=== PATIENT | female | born 1950 | race Caucasian/White ===

== ENCOUNTER 2017-05-04 07:38 | Emergency (ER) | payer OTHER, MEDICAID ==
[2017-05-04] MEDS: HYDROmorphONE 1 MG/ML SYG IV ×2 (07:57→10:35)
[2017-05-04] MEDS: ONDANSETRON 4 MG INJ IV ×2 (07:57→10:36)
[2017-05-04] MEDS: SOD CHLORIDE 0.9% 1,000 ML IV (07:58)
[2017-05-04 09:14] LABS: ADD MAN DIFF? NO
[2017-05-04 09:24] LABS: ABNORMAL IP MESSAGE 1; BASOPHIL # 0.1 10^3/ul (0.0-0.1); BASOPHILS % 1.2 % (0.0-2.0); EOSINOPHILS # 0.3 10^3/ul (0.0-0.5); EOSINOPHILS % 2.8 % (0.0-7.0); HEMATOCRIT 40.6 % (37.0-47.0); HEMOGLOBIN 13.3 g/dl (12.0-16.0); LYMPHOCYTES % 44.8 % (15.0-51.0); MEAN CORPUSCULAR HEMOGLOBIN 27.9 pg (29.0-33.0); MEAN CORPUSCULAR HGB CONC 32.8 g/dl (32.0-37.0); MEAN CORPUSCULAR VOLUME 85.1 fl (82.0-101.0); MONOCYTE # 0.7 10^3/ul (0.3-0.9); MONOCYTES % 6.4 % (0.0-11.0); NEUTROPHIL # 4.8 10^3/ul (1.6-7.5); NEUTROPHILS % 42.9 % (39.0-77.0); PLATELET COUNT 370 10^3/UL (140-415); RED BLOOD COUNT 4.77 10^6/ul (4.20-5.40)
[2017-05-04 09:24] LABS: WHITE BLOOD COUNT 11.2 10^3/ul (4.8-10.8)
[2017-05-04 09:34] LABS: POSITIVE DIFF @See below
[2017-05-04 09:38] LABS: INR 0.91; PROTIME 12.3 Sec (11.9-14.9)
[2017-05-04 09:39] LABS: PARTIAL THROMBOPLASTIN TIME 29.9 Sec (25.0-35.0)
[2017-05-04 09:43] LABS: ALANINE AMINOTRANSFERASE 58 IU/L (13-69); ALBUMIN 4.3 g/dl (3.3-4.9); ALBUMIN/GLOBULIN RATIO 1.26; ALKALINE PHOSPHATASE 166 IU/L (42-121); ASPARTATE AMINO TRANSFERASE 65 IU/L (15-46); BILIRUBIN,INDIRECT 0.5 mg/dl (0-1.1); BILIRUBIN,TOTAL 0.5 mg/dl (0.2-1.3); BLOOD UREA NITROGEN 13 mg/dl (7-20); CALCIUM 9.7 mg/dl (8.4-10.2); CARBON DIOXIDE 23 mmol/L (21-31); CHLORIDE 102 mmol/L (97-110); CREATININE 0.48 mg/dl (0.44-1.00); GLUCOSE 236 mg/dl (70-220); SODIUM 140 mmol/L (135-144); TOTAL PROTEIN 7.7 g/dl (6.1-8.1)
[2017-05-04 10:00] LABS: TROPONIN-I < 0.012 ng/ml (0.00-0.12)
[2017-05-04 10:24] LABS: ANION GAP 19 (8-16)
[2017-05-04 10:25] LABS: POTASSIUM 4.1 mmol/L (3.5-5.1)
[2017-05-04] MEDS: PROPOFOL 200 MG INJ IV (11:03)
== END 2017-05-04 12:31 | disposition short-term general hospital (02) ==
LOC: E/R 07:38
DX: S72.145A Nondisplaced intertrochanteric fracture of left femur, initial encounter for closed fracture (principal); S52.502A Unspecified fracture of the lower end of left radius, initial encounter for closed fracture; E11.65 Type 2 diabetes mellitus with hyperglycemia; R00.2 Palpitations; W01.0XXA Fall on same level from slipping, tripping and stumbling without subsequent striking against object, initial encounter; Y92.002 Bathroom of unspecified non-institutional (private) residence as the place of occurrence of the external cause; Z79.84 Long term (current) use of oral hypoglycemic drugs
CPT/HCPCS: 25505; 36415; 72170; 73110-LT; 73500; 80053; 84484; 85025; 85610; 85730; 93005; 94770; 96374; 96375; 96376; 99291-25